=== PATIENT | female | born 1990 | race Caucasian/White ===

== ENCOUNTER 2018-08-30 08:36 | Emergency (ER) | payer OTHER ==
[~2018-08-30] VITALS: Ht 157.5 cm; Wt 54.4 kg
== END 2018-08-30 13:49 | disposition home or self-care (01) ==
LOC: ER 08:36
DX: T65.6X1A Toxic effect of paints and dyes, not elsewhere classified, accidental (unintentional), initial encounter (principal); J68.8 Other respiratory conditions due to chemicals, gases, fumes and vapors; R42 Dizziness and giddiness; R51 Headache; R53.1 Weakness; Y92.89 Other specified places as the place of occurrence of the external cause

== ENCOUNTER 2019-05-25 18:22 | Emergency (ER) | payer OTHER ==
[~2019-05-25] VITALS: Ht 160 cm; Wt 54.4 kg
== END 2019-05-25 20:34 | disposition home or self-care (01) ==
LOC: ER 18:22
DX: J06.9 Acute upper respiratory infection, unspecified (principal)